=== PATIENT | female | born 1940 | race Caucasian/White ===

== ENCOUNTER 2016-04-25 18:55 | Inpatient (IN) | payer OTHER ==
[~2016-04-25] VITALS: Ht 154.9 cm; Wt 84.9 kg
[~2016-04-25 18:55] MED LIST: ADULT LOW DOSE81 M1 PO; CELECOXIB200 MG PO; CHANTIX1 MG PO; DETROL LA4 MG PO; ENALAPRIL MALEA20 M1 PO; FLOVENT DISKUS1 DIS2 IH; GLUCOPHAGE500 MG PO; HYDROCHLOROTHIA25 MG PO; KEFLEX500 MG PO; LASIX20 MG PO; METOPROLOL TART25 MG PO; MIRALAX17 GM PO; MOTRIN800 MG PO; NIFEDIPINE ER90 M1 PO; SOMA350 MG PO; STIOLTO RESPIMAT4 GM IH; STOOL SOFTENER PO; TYLENOL WITH C1 EACH PO; ULTRAM50 MG PO; VASOTEC20 MG PO; VICODIN 5-3001 EACH PO
[2016-04-25 19:48] LABS: HEMATOCRIT 41.9 % (36.0-46.0); MCH 28.3 PG (29.0-34.0); MCHC 32.9 G/DL (30.0-36.0); MCV 85.9 FL (83-99); MEAN PLAT.VOLUME 11.8 uM^3 (9.5-12.4); PLATELET COUNT 170 K/uL (156-360); RBC DIS.WIDTH-CV 14.8 % (11.8-14.6); RBC DIS.WIDTH-SD 46.1 % (39-53); RED BLOOD COUNT 4.88 M/uL (3.80-5.20); WHITE BLOOD COUNT 23.1 K/uL (4.1-10.2)
[2016-04-25 20:05] LABS: CHLORIDE 100 mEq/L (99-109); POTASSIUM 3.5 mEq/L (3.7-5.4); SODIUM 138 mEq/L (136-147)
[2016-04-25 20:08] LABS: GLUCOSE 151 mg/dL (70-99)
[2016-04-25 20:09] LABS: ANION GAP 18 MEQ/L (2-14)
[2016-04-25 20:11] LABS: ALKALINE PHOSPHATASE 91 IU/L (3-129); GFR ESTIMATE (CALCULATED) 19 mL/min/
[2016-04-25 20:12] LABS: UREA NITROGEN (BUN) 37 mg/dL (9-23)
[2016-04-25 21:16] LABS: ADD MIUA? YES; BILIRUBIN NEGATIVE; BLOOD LARGE; COLOR DK YELLOW ((YELLOW)); GLUCOSE (STRIP) NEGATIVE; KETONES NEGATIVE; LEUKOCYTES LARGE; NITRITE NEGATIVE; PH, URINE 5.5 (5-8); PROTEIN (STRIP) 100; SPECIFIC GRAVITY 1.021 (1.000-1.030); UROBILINOGEN 0.2 MG/DL (0.2-1.0)
[2016-04-25] MEDS ORDERED: FLUTICASONE PRO16 GM BOTH NARES (21:35)
[2016-04-25] MEDS ORDERED: MIRALAX255 GM PO (21:37)
[2016-04-25] MEDS ORDERED: FUROSEMIDE20 MG PO (21:38)
[2016-04-25 21:49] LABS: EPITHELIAL CELLS NONE SEEN; MUCUS NONE SEEN; WHITE BLOOD CELLS TNTC /HPF (0-5)
[2016-04-25 21:50] LABS: BACTERIA 4+; CASTS NONE SEEN /LPF; CRYSTALS NONE SEEN; UCUL ADDED? YES
[2016-04-26 02:08] VITALS: BP 118/57
[2016-04-26 02:30] VITALS: BP 90/50
[2016-04-26 06:46] LABS: EOSINOPHIL (%) 0.3 % (0-5); EOSINOPHIL COUNT 0.1 K/uL (0-0.3); HEMATOCRIT 36.9 % (36.0-46.0); IMMATURE GRANULOCYTE (%) 0.3 % (0.0-0.7); LYMPHOCYTE COUNT 1.3 K/uL (1.0-2.8); MCH 27.7 PG (29.0-34.0); MCHC 31.7 G/DL (30.0-36.0); MCV 87.4 FL (83-99); MEAN PLAT.VOLUME 11.6 uM^3 (9.5-12.4); MONOCYTE (%) 9.7 % (3-12); MONOCYTE COUNT 1.4 K/uL (0-0.8); NEUTROPHIL (%) 80.7 % (45-76); NEUTROPHIL COUNT 11.9 K/uL (1.8-6.4); PLATELET COUNT 128 K/uL (156-360); RBC DIS.WIDTH-SD 47.3 % (39-53); RED BLOOD COUNT 4.22 M/uL (3.80-5.20); WHITE BLOOD COUNT 14.8 K/uL (4.1-10.2)
[2016-04-26 06:55] LABS: ANION GAP 12 MEQ/L (2-14); CHLORIDE 108 MEQ/L (99-109); POTASSIUM 3.9 MEQ/L (3.7-5.4); SAMPLE HEMOLYSIS CHECK 0; SAMPLE ICTERIC CHECK 0; SAMPLE LIPEMIA CHECK 0; SODIUM 144 MEQ/L (136-147); UREA NITROGEN (BUN) 34 mg/dL (9-23)
[2016-04-26 06:59] LABS: GFR ESTIMATE (CALCULATED) 29 mL/min/; GLUCOSE 95 mg/dL (70-99)
[2016-04-26 08:00] VITALS: BP 125/60
[2016-04-26 12:00] VITALS: BP 125/60
[2016-04-26 15:31] VITALS: BP 114/52
[2016-04-26 20:10] VITALS: BP 126/54
[2016-04-26 21:52] LABS: POINT-OF-CARE USER ID 603211116
[2016-04-27 00:45] VITALS: BP 137/65
[2016-04-27 06:58] LABS: HEMATOCRIT 34.5 % (36.0-46.0); MCH 27.9 PG (29.0-34.0); MCHC 32.2 G/DL (30.0-36.0); MCV 86.7 FL (83-99); MEAN PLAT.VOLUME 11.8 uM^3 (9.5-12.4); PLATELET COUNT 123 K/uL (156-360); RBC DIS.WIDTH-CV 14.7 % (11.8-14.6); RBC DIS.WIDTH-SD 46.4 % (39-53); RED BLOOD COUNT 3.98 M/uL (3.80-5.20)
[2016-04-27 07:00] LABS: WHITE BLOOD COUNT 8.6 K/uL (4.1-10.2)
[2016-04-27 07:29] LABS: ANION GAP 9 MEQ/L (2-14); CHLORIDE 108 MEQ/L (99-109); GFR ESTIMATE (CALCULATED) 42 mL/min/; GLUCOSE 91 mg/dL (70-99); POTASSIUM 3.2 MEQ/L (3.7-5.4); SAMPLE HEMOLYSIS CHECK 0; SAMPLE ICTERIC CHECK 0; SAMPLE LIPEMIA CHECK 0; SODIUM 142 MEQ/L (136-147); UREA NITROGEN (BUN) 22 mg/dL (9-23)
[2016-04-27 08:00] VITALS: BP 146/71
[2016-04-27 15:44] VITALS: BP 133/67
[2016-04-27 20:08] VITALS: BP 123/60
[2016-04-28 00:31] VITALS: BP 98/54
[2016-04-28 03:28] VITALS: BP 130/67
[2016-04-28 08:00] VITALS: BP 123/60
[2016-04-28] MEDS ORDERED: ENALAPRIL MALEA10 MG PO (11:16)
[2016-04-28] MEDS ORDERED: JANUVIA25 MG PO (11:16)
[2016-05-14] MEDS ORDERED: ENALAPRIL MALEA20 MG PO (10:36)
[2016-05-14] MEDS ORDERED: CHANTIX1 MG PO (10:39)
[2016-05-14] MEDS ORDERED: COLACE CLEAR50 MG PO (10:39)
== END 2016-04-28 13:20 | disposition home or self-care (01) | DRG 872 ==
LOC: EME 18:55 → EDOF 23:36 → 5SOUTH 04-26 01:50
PROVIDERS: Family Medicine; Internal Medicine; Physician Assistant
DX: A41.9 Sepsis, unspecified organism (principal); R65.20 Severe sepsis without septic shock; N39.0 Urinary tract infection, site not specified; B96.20 Unspecified Escherichia coli [E. coli] as the cause of diseases classified elsewhere; N17.9 Acute kidney failure, unspecified; N13.2 Hydronephrosis with renal and ureteral calculous obstruction; R09.02 Hypoxemia; J44.9 Chronic obstructive pulmonary disease, unspecified; I12.9 Hypertensive chronic kidney disease with stage 1 through stage 4 chronic kidney disease, or unspecified chronic kidney disease; N18.9 Chronic kidney disease, unspecified; R91.8 Other nonspecific abnormal finding of lung field; Z96.643 Presence of artificial hip joint, bilateral; Z96.651 Presence of right artificial knee joint; F17.210 Nicotine dependence, cigarettes, uncomplicated; E87.6 Hypokalemia; R10.30 Lower abdominal pain, unspecified; E11.9 Type 2 diabetes mellitus without complications; M19.90 Unspecified osteoarthritis, unspecified site
CPT/HCPCS: 71020; 74176; 80048; 80053; 81003; 82565; 82948; 83605; 85025; 85027; 87040; 87077; 87086 GA; 87186; 94640; 94640 76; 94799; 99281; 99285; J0696; J1644; J1815; J1956; J7030; J7050

== ENCOUNTER 2016-05-19 08:57 | Day surgery (SDC) | payer OTHER ==
[~2016-05-19] VITALS: Ht 154.9 cm; Wt 78.2 kg
[~2016-05-19 08:57] MED LIST changes: +COLACE CLEAR50 MG PO; +ENALAPRIL MALEA10 MG PO; +ENALAPRIL MALEA20 MG PO; +FLUTICASONE PRO16 GM BOTH NARES; +FUROSEMIDE20 MG PO; +JANUVIA25 MG PO; +MIRALAX255 GM PO
[2016-05-19 09:51] LABS: POINT-OF-CARE METER ID UU14174212
[2016-05-19 10:09] VITALS: BP 182/82
[2016-05-19 13:06] VITALS: BP 188/78
[2016-05-19 13:55] VITALS: BP 185/75
[2016-05-19 15:50] VITALS: BP 170/70
[2016-05-19 17:35] VITALS: BP 174/80
== END 2016-05-19 18:14 | disposition home or self-care (01) ==
LOC: SDC
PROVIDERS: Urology
DX: N20.0 Calculus of kidney (principal); N13.39 Other hydronephrosis; J44.9 Chronic obstructive pulmonary disease, unspecified; I10 Essential (primary) hypertension; F17.200 Nicotine dependence, unspecified, uncomplicated; E11.9 Type 2 diabetes mellitus without complications
CPT/HCPCS: 74420; 82948; C1876; C1894; J0690; J1580; J2405; J2550; J3010; J7050

== ENCOUNTER → 2016-08-22 | Outpatient (CLI) | payer OTHER | END | disposition home or self-care (01) | LOC: NUC 10:40 | DX: Z87.448 Personal history of other diseases of urinary system (principal) | CPT/HCPCS: 78709 ==

== ENCOUNTER → 2017-03-09 | Outpatient (CLI) | payer OTHER | END | disposition home or self-care (01) | LOC: NUC 10:41 | DX: R94.4 Abnormal results of kidney function studies (principal); Z87.448 Personal history of other diseases of urinary system | CPT/HCPCS: 78709; A9562 ==

== ENCOUNTER 2017-09-10 21:05 | Emergency (ER) | payer OTHER ==
[~2017-09-10] VITALS: Ht 157.5 cm; Wt 95.1 kg
[2017-09-10 23:38] VITALS: BP 144/67
== END 2017-09-10 23:39 | disposition home or self-care (01) ==
LOC: EME 21:05
DX: S80.01XA Contusion of right knee, initial encounter (principal); W18.2XXA Fall in (into) shower or empty bathtub, initial encounter; Z96.651 Presence of right artificial knee joint; Z79.82 Long term (current) use of aspirin; I10 Essential (primary) hypertension; E11.9 Type 2 diabetes mellitus without complications; Z79.84 Long term (current) use of oral hypoglycemic drugs; Z87.891 Personal history of nicotine dependence
CPT/HCPCS: 73564; 93971; 99281; 99283